=== PATIENT | female | born 1955 | race Caucasian/White ===

== ENCOUNTER 2019-11-16 09:13 | Emergency (ER) | payer MEDICARE, MEDICAID, SELFPAY ==
[2019-11-16 09:17] VITALS: BP 143/71; PULSE 58; RESP 16; TEMP 37.5; O2SAT 97; BMI 37.5
--- NOTE | 2019-11-16 09:26 | RAD_ITS ---
STUDY: X-RAY CHEST REASON FOR EXAM: Female, 64 years old. PATIENT COMPLAINS OF FEVER, COUGH, SOB, AND DIARRHEA X2 DAYS. TECHNIQUE: Single AP portable view of the chest. COMPARISON: None. FINDINGS: Low lung volumes. Cervical fixation hardware. Cardiac silhouette unremarkable. Pulmonary vascularity unremarkable. Aorta calcified. No focal patchy airspace opacities. No pleural effusions. Upper abdomen unremarkable. Osseous structures slightly demineralized with degenerative features. No pneumothorax. RAD/Chest 1 View (Portable) IMPRESSION: No acute cardiopulmonary findings Electronically Signed: Javier Pandya DO at 10:39 EDT Tel , Service support ,
--- NOTE | 2019-11-16 09:44 | ED.VISSUMM ---
- ER Visit Summary Date of Service: 11/16/19 Chief Complaint: [Shortness of breath] History of Present Illness: The patient is a 64 F [presents to the emergency department stating she does not feel well. Patient states her symptoms started yesterday with a cough. Today patient had a temperature up to 100.8. She is complaining of some mild left-sided chest discomfort with breathing. Cough is nonproductive. Patient also has had 4 episodes of watery stool. She denies any nausea or vomiting. She denies abdominal pain. She denies urinary symptoms. Patient has no known exposures to COVID-19. Patient does state that her also who has COPD started feeling ill today. Patient has a history of asthma, high cholesterol, hypertension, borderline diabetes, anxiety, and depression.] Patient also relates history that in late July into August she had an illness that lasted about 3 weeks where she lost her sense of taste and smell. Patient states that eventually her symptoms resolved. Physical Examination: [HEENT-PERRLA, EOMI. Cranial nerves II through XII grossly intact. TMs clear. Mucous membranes moist. No adenopathy. Cardiovascular-regular rate and rhythm without murmur or ectopy Lungs-clear to auscultation, chest wall stable without crepitus or subcu emphysema Abdomen-normoactive bowel sounds, soft, nontender, no rebound or rigidity, no peritoneal signs. Extremities-intact ?4, normal range of motion, normal pulses, atraumatic] Test Results: [CBC with differential showed a white count 3.1, hemoglobin 12.8, hematocrit 40, platelets 162. Patient had low lymphocyte count of 13.1. Chemistries unremarkable. Lactate was 1.8. ] Urinalysis was normal. Chest x-ray was unremarkable. Emergency Department Course and Treatment: [Patient had coronavirus testing ordered with approval from [facility]. Results will be pending.] Treatment Plan: [We will be treated with doxycycline to cover any bacterial causes of her upper respiratory infection. Patient advised to push fluids. Patient advised to return if increasing shortness of breath or condition should worsen anyway.] Disposition: [Discharged home in stable condition] Impression: [URI Diarrhea] This note was generated with [employer] software. It may contain incorrect words, spelling, and punctuation that were not noted in review of the chart prior to signing ED Disposition - Plan for ED Patient: Referrals: Kim Gorman MD [Primary Care Provider] -
[2019-11-16 09:57] LABS: Absolute Lymphocyte Count 0.42 X10^3/uL (0.83-4.51); Absolute Neutrophil Count 2.3 X10^3/uL (2.0-7.7); Basophil# 0.02 X10^3/uL; Basophil% 0.6 % (0-1); Eosinophil# 0.03 X10^3/uL; Hemoglobin 12.8 g/dL (12.0-15.0); Lymphocyte # 0.42 X10^3/ul (4.0); Lymphocyte % 13.4 % (19-41); Mean Corpuscular Hgb 29.2 pg (27.0-32.0); Mean Corpuscular Volume 91.1 fL (81-99); Mean Platelet Vol. 11.2 fl (6.2-12.0); Monocyte% 12.8 % (0-10); NRBC Flagged by Analyzer 0 % (0-5); Neutrophil # 2.25 X10^3/uL (2.7-7.7); Neutrophil % 71.9 % (47-70); POSITIVE DIFFERENTIAL YES; Platelet Count 162 K/mm3 (150-450); RBC Distribution Width SD 43.3 fl (35.1-43.9); Red Blood Count 4.39 M/mm3 (4.2-5.4); White Blood Count 3.1 K/mm3 (4.4-11.0)
[2019-11-16 10:01] LABS: Differential Indicated SCAN CRITERIA MET
[2019-11-16 10:10] LABS: Anion Gap 8 (5-15); BUN 16 mg/dL (7-18); BUN/Creat Ratio 18.2 RATIO (10-20); Calcium,Total 8.7 mg/dL (8.5-10.1); Chloride 108 mmol/L (98-107); Creatinine, Serum 0.88 mg/dL (0.55-1.02); EST Glomerular Filtration Rate 69 mL/min (>60); Est Glom Filt Rate - Afr Amer 83 mL/min (>60); Estimated Creatinine Clearance 57.35 ml/min; Glucose 135 mg/dL (74-106); Sodium Level 141 mmol/L (136-145)
[2019-11-16] MEDS: 0.9% Normal Saline 1,000 ML 150 ML IV (10:15)
[2019-11-16 10:16] VITALS: BP 121/81; PULSE 61; RESP 18; TEMP 37; O2SAT 96
[2019-11-16 10:17] LABS: Lactic Acid 1.8 mmol/L (0.4-1.9)
[2019-11-16 10:19] VITALS: O2SAT 96
[2019-11-16 10:24] LABS: Differential Comment SCANNED
[2019-11-16 11:18] VITALS: BP 121/70; BP 122/71; PULSE 57; PULSE 60; RESP 20; TEMP 37.1; O2SAT 96; O2SAT 98
[2019-11-16 11:51] LABS: Bacteria 0 SEEN /hpf (None Seen); Red Blood Cells-Urine 0 SEEN /hpf (0-5); White Blood Cells 0 SEEN /hpf (0-5)
[2019-11-16 11:56] LABS: Color, Urine Yellow (Yellow); Glucose, Dipstick Normal (Normal); Ketone-Dipstick Negative (Negative); Leukocyte Esterase-Dipstick Negative /ul (Negative); Nitrite-Dipstick Negative (Negative); Occult Blood-Urine Negative /ul (Negative); Protein-Dipstick Negative (Negative); Urine Bilirubin Dipstick Negative (Negative); Urine Clarity Sl. Cloudy (Clear); Urine Urobilinogen Normal (Normal)
[2019-11-16 12:02] LABS: Mucous, Urine 2+ /hpf (<or=2+); Squamous Epithelial Cells - UA 0-5 SEEN /hpf (5-10)
--- NOTE | 2019-11-16 12:05 | ED.DEP ---
ED Disposition - Plan for ED Patient: Instructions: ED Upper Resp Infec Abx Tx, ED Diarrhea Viral Prescriptions: Doxycycline 100 mg PO BID #20 cap Prescription Printed Referrals: Kim Gorman MD [Primary Care Provider] - 5-7 Days
[2019-11-16] MEDS: Acetaminophen 325 MG Tablet 650 MG PO (12:09)
[2019-11-16] MEDS: Doxycycline 100 MG CAPSULE PO (12:30)
[2019-11-16 12:31] VITALS: BP 132/60; PULSE 64; RESP 20; TEMP 37.6; O2SAT 96
[2019-11-17 11:55] LABS: Pathologist Review Reviewed
== END 2019-11-16 12:31 | disposition home or self-care (01) ==
LOC: ED 12:27
PROVIDERS: Emergency Provider Emergency Medicine; PCP Internal Medicine
DX: U07.1 COVID-19 (principal); R19.7 Diarrhea, unspecified; E11.9 Type 2 diabetes mellitus without complications; I10 Essential (primary) hypertension; J45.909 Unspecified asthma, uncomplicated; E78.00 Pure hypercholesterolemia, unspecified; F32.9 Major depressive disorder, single episode, unspecified; F41.9 Anxiety disorder, unspecified
CPT/HCPCS: 71045; 80048; 81001; 83605; 85025; 87040; 87635; 87804; 99284; G2023; U0004

== ENCOUNTER → 2020-07-16 12:56 | Outpatient (CLI) | payer MEDICARE, MEDICAID, SELFPAY ==
[2020-06-11 12:49] VITALS: BMI 37.0
--- NOTE | 2020-07-16 15:13 | PFTCOMP_ITS ---
COMPLETE PULMONARY FUNCTION TEST INTERPRETATION Brief HPI: Patient is a 64 year old female, currently under the care of myself, who presents to [facility] for complete pulmonary function tests secondary to diagnosis of COPD. Respiratory therapist reports good effort and reproducible results. Interpretation: Forced expiration spirometry shows a mild large airways obstructive ventilatory defect with an FEV1 of 84% predicted. There is no significant bronchodilator response by strict ATS criteria. Spirograms are of good quality and plateau slowly, indicating slowly emptying areas of the lungs. The respiratory flow volume loop shows decreased expiratory flow rates at all lung volumes consistent with airway obstruction. Lung volumes by body plethysmography show a normal total lung capacity at 4.71 L, 91% predicted. All other lung volumes are within normal limits. Diffusion capacity by carbon monoxide is normal at 78% predicted. The airway resistance is slightly elevated. No previous pulmonary function tests were available for review. Impression: Irreversible mild large airways obstructive ventilatory defect in a pattern consistent with chronic bronchitis.
== END ==
PROVIDERS: PCP Internal Medicine; Referring Provider Internal Medicine Critical Care Medicine; Visit Provider Internal Medicine Critical Care Medicine
DX: J44.9 Chronic obstructive pulmonary disease, unspecified (principal)
CPT/HCPCS: 94060; 94726; 94729

== ENCOUNTER → 2020-07-23 12:31 | Outpatient (CLI) | payer MEDICARE, MEDICAID, SELFPAY ==
[2020-06-11 12:49] VITALS: BMI 37.0
[2020-07-23 13:02] VITALS: PULSE 70; PULSE 74; PULSE 92; PULSE 93; PULSE 95; PULSE 96; PULSE 99; O2SAT 89; O2SAT 90; O2SAT 91; O2SAT 93; O2SAT 95; O2SAT 97
--- NOTE | 2020-07-24 07:30 | PCM.PSN.6M ---
PSN 6 Minute Walk Test - 6 Minute Walk Test 6 Minute Walk Test: 6 Minute Walk Test PSN:6-Minute Walk Test Start: 07/23/20 13:01 Freq: Status: Active Protocol: RESP.6MINW Document 07/23/20 13:02 ANTONY (Rec: 07/23/20 13:02 ANTONY [id number]) 6 Minute Walk Test Date Performed 07/23/20 Time Performed 12:30 Height 5 ft 5 in Weight: 230 lb Weight in Pounds 230.[address]: Syed Mcadams Assistive device used: None Pre-test Oxygen Delivery Method Room Air Pulse Ox (%) 95 Pulse Rate (60-100 beats/min) 70 Dyspnea Otto Scale (0-10) 0.5 Exertion Otto Scale (6-20) 6 1st minute Oxygen Delivery Method Room Air Pulse Ox (%) 93 Pulse Rate (60-100 beats/min) 92 2nd minute Oxygen Delivery Method Room Air Pulse Ox (%) 91 Pulse Rate (60-100 beats/min) 93 3rd minute Oxygen Delivery Method Room Air Pulse Ox (%) 89 Pulse Rate (60-100 beats/min) 96 4th minute Oxygen Delivery Method Room Air Pulse Ox (%) 90 Pulse Rate (60-100 beats/min) 96 5th minute Oxygen Delivery Method Room Air Pulse Ox (%) 90 Pulse Rate (60-100 beats/min) 95 6th minute Oxygen Delivery Method Room Air Pulse Ox (%) 91 Pulse Rate (60-100 beats/min) 99 Dyspnea Otto Scale (0-10) 3 Exertion Otto Scale (6-20) 13 Post-test Oxygen Delivery Method Room Air Pulse Ox (%) 97 Pulse Rate (60-100 beats/min) 74 Full Laps Walked 18 Partial Lap, Number of Tiles Walked 32 Total Distance Walked (ft) 1094 - Interpretation Interpretation: The patient ambulated 1094 feet over the course of 6 minutes beginning on room air without assistive devices or breaks. Pretesting oxygen saturation was noted to be 95% on room air. With ambulation, the teo oxygen saturation was 89%. This represents a significant exertional oxygen desaturation, consistent with a pulmonary limitation to exercise tolerance. - Recommendations Recommendations: There is no indication for the use of supplemental oxygen at this time. However, close interval follow-up is recommended, given the degree of oxygen desaturation noted during the study.
== END ==
PROVIDERS: PCP Internal Medicine; Referring Provider Internal Medicine Critical Care Medicine; Visit Provider Internal Medicine Critical Care Medicine
DX: J44.9 Chronic obstructive pulmonary disease, unspecified (principal)
CPT/HCPCS: 94618

== ENCOUNTER → 2020-09-18 13:00 | Outpatient (CLI) | payer MEDICARE, MEDICAID, SELFPAY ==
[2020-08-29 12:57] VITALS: BMI 37.3
== END ==
PROVIDERS: PCP Internal Medicine; Referring Provider Nurse Practitioner Acute Care; Visit Provider Nurse Practitioner Acute Care
DX: G47.33 Obstructive sleep apnea (adult) (pediatric) (principal)
CPT/HCPCS: 98960; G0463

== ENCOUNTER → 2021-06-12 08:13 | Outpatient (CLI) | payer MEDICARE, MEDICAID, SELFPAY ==
--- NOTE | 2021-06-14 07:28 | PFT ---
INTRODUCTION: The patient is a 65-year-old female that presents for pulmonary function studies secondary to a diagnosis of COPD. Respiratory therapy reported good patient effort. Bronchodilators were used during testing. INTERPRETATION: Forced expiration spirometry demonstrates the presence of a mild large airways obstructive ventilatory defect. There was no significant response to aerosolized bronchodilators. Spirograms are of good quality and plateau normally. Body plethysmography was performed and revealed an elevated TLC and RV, indicative of underlying hyperinflation and air trapping. Diffusing capacity by single breath CO was reduced to 67% of predicted. IMPRESSION: Irreversible mild large airways obstructive ventilatory defect with associated hyperinflation and air trapping, along with symmetric reduction in diffusing capacity.
== END ==
PROVIDERS: PCP Internal Medicine; Referring Provider Internal Medicine Critical Care Medicine; Visit Provider Internal Medicine Critical Care Medicine
DX: J44.9 Chronic obstructive pulmonary disease, unspecified (principal)
CPT/HCPCS: 94060; 94726; 94729

== ENCOUNTER 2021-07-23 20:40 | Outpatient (CLI) | payer MEDICARE, MEDICAID, SELFPAY | END 2021-07-23 23:59 | disposition short-term general hospital (02) | PROVIDERS: PCP Internal Medicine; Visit Provider Internal Medicine Critical Care Medicine | DX: G47.33 Obstructive sleep apnea (adult) (pediatric) (principal); J44.9 Chronic obstructive pulmonary disease, unspecified | CPT/HCPCS: 95811 ==

== ENCOUNTER 2021-10-08 09:49 | Outpatient (CLI) | payer MEDICARE, MEDICAID, SELFPAY | END 2021-10-08 23:59 | disposition home or self-care (01) | LOC: SL 09:49 | PROVIDERS: PCP Internal Medicine; Visit Provider Nurse Practitioner Acute Care | DX: Z46.89 Encounter for fitting and adjustment of other specified devices (principal) ==